=== PATIENT | male | born 1960 | race Caucasian/White ===

== ENCOUNTER 2018-06-29 12:13 | Emergency (ER) | payer OTHER ==
[2018-06-29 12:58] LABS: PLATELET COUNT 243 10^3/uL (150-400)
[2018-06-29] MEDS ORDERED: ASPIRIN 81 MG CHEWABLE TAB PO ONE (13:13)
[2018-06-29] MEDS ORDERED: NITROGLYCERIN 0.4 MG BTL SL PRN (13:14)
--- NOTE | 2018-06-29 13:16 | EDPHY ---
HPI/HX/ROS/PE/MDM Narrative: CHIEF COMPLAINT: Hypertension, shortness of breath, headache, slurred speech HISTORY OF PRESENT ILLNESS: The patient is a 58 y/o male with a history of hypertension complaining of hypertension, shortness of breath, headaches, and slurred speech. For the past 6 months, he has been taking losartan each morning , though he reports his blood pressure has continued to be elevated at 165/100. About 5 days ago, he developed shortness of breath accompanied by a cough with green sputum. 3 days ago, his primary care provider prescribed a a course of azithromycin. He has been taking the azithromycin for the past few days but has missed his dose of losartan for approximately 3 days due to travel and forgetfulness. Further, he notes headaches upon waking up for about a couple weeks, intermittent difficulty speaking which is increasing in intensity and severity for the past few weeks, and shortness of breath for the last few weeks which is worse at night and with activity, causing him gasp for breath or increase his breathing rate. He believes the shortness of breath at night is due to his acid reflux. In addition, he has had pain in the lower left buttocks for which he went to a chiropractor today and had several adjustments including in the neck, and causing an increase in pain along the entire length of his left leg. Today, while grocery shopping, he felt lightheaded and developed a headache. He took his blood pressure and noted it was 185/125, prompting his visit today. He denies chest pain, palpitations, abdominal pain, tingling or numbness in either leg, weakness in his legs, or any other associated symptoms. He denies taking an anticoagulant, smoking, excessive alcohol use, or illicit drug use. His recent travel to [place] did not include prolonged periods of inactivity. He denies history of DVT or PE. No fever, chills, chest pain, palpitations, vomiting, diarrhea, urinary complaints. REVIEW OF SYSTEMS: A comprehensive 10 system review of systems is otherwise negative aside from elements mentioned in the history of present illness and medical decision making PAST MEDICAL HISTORY: Hypertension, Watts's cyst behind right knee SOCIAL HISTORY: at bedside, nonsmoker, lives in [place], employed by [employer] VITAL SIGNS: Reviewed by me. 173/125. GENERAL: Overweight gentleman, resting in no respiratory distress. Visibly anxious. HEENT: Atraumatic. Eyes: No icterus, no injection. Mouth: moist mucous membranes. No erythema or lesions. Neck: supple with no adenopathy. No carotid bruits noted. Supple and nontender. LUNGS: Breath sounds diminished throughout, no wheezes, rhonchi or rales. CARDIAC: Regular rate and rhythm, no rubs, murmurs or gallops. ABDOMEN: Soft, nontender, nondistended, bowel sounds normal. BACK: No CVA tenderness. EXTREMITIES: No trauma. No edema. Range of motion is normal throughout. NEURO: Alert and oriented x3, cranial nerves are intact throughout, normal motor in left leg and throughout, normal sensation in left leg and throughout. Grossly nonfocal. Speech is fluent with an occasional barely perceptible slurring of a few words. SKIN: Warm and dry, no rash. PSYCHIATRIC: Normal mentation, no agitation. ED Course: 12-LEAD EKG: Please see the full report in [facility]. My interpretation: Normal sinus rhythm Study: X-ray of the chest Indication: Shortness of breath Results: X-ray scan of the chest was obtained. The results of the study are: bibasilar atelectasis The study was read by the radiologist, Dr. Leahy. I viewed the images myself on the PACS system. Study: CT of the head Indication: Headaches Results: CT scan of the head was obtained. The results of the study are: negative for acute findings The study was read by the radiologist, Dr. Leahy. I viewed the images myself on the PACS system. The patient presents with shortness of breath, headaches, lightheadedness, difficulty speaking, and hypertension, all increasing in severity over the past few weeks. He also has had neck manipulations performed today. Symptoms became acutely worse this afternoon with a blood pressure of 185/125. Exam indicates diminished breath sound throughout. Neurological exam is normal without any findings. Point of care troponin is elevated at 0.30. 0.4 mg sublingual nitroglycerin and 324 aspirin for treatment. EKG is sinus rhythm. Plan for CBC, basic metabolic panel, lab troponin, D-dimer , lipase, liver function, BNP, chest x-ray, and head CT. CT angiograms initially ordered, however, the patient reports an IV contrast allergy and is not agreeable to pretreatment and then performing the angiogram. 1345: The lab troponin is negative at less than 0.12. His blood pressure is decreasing. Imaging still pending. 1430: The CT is negative for acute findings. The patient continues to decline CTA due to his previous reaction, even with premedication to avoid reaction. I advised MRI. He declined further testing in the emergency department. I have advised follow up with cardiology and with his primary care physician tomorrow. We discussed the initial elevated point of care troponin and a subsequent normal lab troponin. Patient did not have chest pain at any point. He is aware that it if he should develop chest pain, worsening shortness of breath, palpitations, stroke-like symptoms, worsening headache, or other concerns he should return to the emergency department immediately Course discussed with Dr. Philip Hess, on-call for Dr. Yair Valles. Patient to follow up tomorrow with Dr. Valles. Follow up instruction and return precautions given. MDM: Differential diagnoses for the patient's symptom complex was considered including but not limited to hypertensive urgency, stroke, acute coronary syndrome, pulmonary embolism, infectious process. - Data Points Imaging Results: Imaging Impressions Chest X-Ray 06/29/18 12:38 Impression: 1. Bibasilar atelectasis. 2. No interstitial edema or effusion. Head CT 06/29/18 13:13 Impression: 1. Normal brain. No acute intracranial hemorrhage or ischemia. 2. Mild ethmoid, maxillary, and nasal passage sinus disease. Query polyposis. Findings discussed with the emergency department physician, Katie Manrique MD on June 29, 2018 at 2:09 p.m. Imaging: Discussed imaging studies w/ call center support consultant Radiologist, I viewed and interpreted images myself Laboratory Results: Laboratory Results 06/29/18 12:31 06/29/18 12:31 06/29/18 06/29/18 06/29/18 12:44 12:31 12:31 WBC RBC Hgb Hct MCV MCH MCHC RDW Plt Count MPV Neut % (Auto) Lymph % (Auto) [place] % (Auto) Eos % (Auto) Baso % (Auto) Nucleat RBC Rel Count Absolute Neuts (auto) Absolute Lymphs (auto) Absolute Monos (auto) Absolute Eos (auto) Absolute Basos (auto) Absolute Nucleated RBC Immature Gran % Immature Gran # D-Dimer < 0.27 ug/mLFEU ug/mLFEU (0.00-0.50) Sodium Potassium Chloride Carbon Dioxide Anion Gap BUN Creatinine Estimated GFR Glucose Calcium Total Bilirubin 0.8 mg/dL mg/dL (0.1-1.4) Conjugated Bilirubin 0.2 mg/dL mg/dL (0.0-0.5) Unconjugated Bilirubin 0.6 mg/dL mg/dL (0.0-1.1) AST 27 IU/L IU/L (17-59) ALT 42 IU/L IU/L (21-72) Alkaline Phosphatase 61 IU/L IU/L (38-126) POC Troponin I 0.31 ng/mL H ng/mL (0.00-0.08) Troponin I NT-Pro-B Natriuret Pep 83 pg/mL pg/mL (0-125) Total Protein 7.4 g/dL g/dL (6.3-8.2) Albumin 4.4 g/dL g/dL (3.5-5.0) Lipase 99 IU/L IU/L (23-300) 06/29/18 06/29/18 06/29/18 12:31 12:31 12:31 WBC 8.60 10^3/uL 10^3/uL (3.80-9.50) RBC 5.40 10^6/uL 10^6/uL (4.40-6.38) Hgb 15.9 g/dL g/dL (13.7-17.5) Hct 45.3 % % (40.0-51.0) MCV 83.9 fL fL (81.5-99.8) MCH 29.4 pg pg (27.9-34.1) MCHC 35.1 g/dL g/dL (32.4-36.7) RDW 12.1 % % (11.5-15.2) Plt Count 243 10^3/uL 10^3/uL (150-400) MPV 9.3 fL fL (8.7-11.7) Neut % (Auto) 52.0 % % (39.3-74.2) Lymph % (Auto) 35.6 % % (15.0-45.0) Scre[place] % (Auto) 5.9 % % (4.5-13.0) Eos % (Auto) 5.0 % % (0.6-7.6) Baso % (Auto) 0.9 % % (0.3-1.7) Nucleat RBC Rel Count 0.0 % % (0.0-0.2) Absolute Neuts (auto) 4.47 10^3/uL 10^3/uL (1.70-6.50) Absolute Lymphs (auto) 3.06 10^3/uL H 10^3/uL (1.00-3.00) Absolute Monos (auto) 0.51 10^3/uL 10^3/uL (0.30-0.80) Absolute Eos (auto) 0.43 10^3/uL H 10^3/uL (0.03-0.40) Absolute Basos (auto) 0.08 10^3/uL 10^3/uL (0.02-0.10) Absolute Nucleated RBC 0.00 10^3/uL 10^3/uL (0-0.01) Immature Gran % 0.6 % % (0.0-1.1) Immature Gran # 0.05 10^3/uL 10^3/uL (0.00-0.10) D-Dimer Sodium 141 mEq/L mEq/L (135-145) Potassium 4.1 mEq/L mEq/L (3.3-5.0) Chloride 104 mEq/L mEq/L (97-110) Carbon Dioxide 29 mEq/l mEq/l (22-31) Anion Gap 8 mEq/L mEq/L (6-14) BUN 26 mg/dL H mg/dL (7-23) Creatinine 1.2 mg/dL mg/dL (0.7-1.3) Estimated GFR > 60 Glucose 121 mg/dL H mg/dL (70-100) Calcium 9.5 mg/dL mg/dL (8.5-10.4) Total Bilirubin Conjugated Bilirubin Unconjugated Bilirubin AST ALT Alkaline Phosphatase POC Troponin I Troponin I < 0.012 ng/mL ng/mL (0.000-0.034) NT-Pro-B Natriuret Pep Total Protein Albumin Lipase Medications Given: Discontinued Medications Aspirin (Aspirin) 324 mg PO EDNOW ONE Stop: 06/29/18 13:14 Last Admin: 06/29/18 13:27 Dose: 324 mg Nitroglycerin (Nitrostat) 0.4 mg SL Q5M PRN PRN Reason: Chest Pain Last Admin: 06/29/18 13:28 Dose: 0.4 mg Point of Care Test Results: Chemistry 06/29/18 12:44 POC Troponin I 0.31 ng/mL H ng/mL (0.00-0.08) General Time Seen by Provider: 06/29/18 12:57 Initial Vital Signs: Initial Vital Signs Temperature (C) 36.3 C 06/29/18 12:17 Heart Rate 74 06/29/18 12:17 Respiratory Rate 18 06/29/18 12:17 Blood Pressure 173/125 H 06/29/18 12:17 O2 Sat (%) 94 06/29/18 12:17 O2 Delivery Mode Room Air Allergies/Adverse Reactions: iv contrast Allergy (Uncoded 06/29/18 12:17) Home Medications: Medication Instructions Recorded Ondansetron Odt [Zofran Odt] 4 mg PO Q4PRN PRN #4 tab 01/28/16 oxyCODONE/APAP 5/325 [Percocet 1 tab PO Q4-6PRN PRN #10 tab 01/28/16 5/325] Departure - Departure Disposition: Home, Routine, Self-Care Clinical Impression: Shortness of breath Hypertension Qualifiers: Hypertension type: essential hypertension Qualified Code(s): I10 - Essential ( primary) hypertension Headache Qualifiers: Headache type: other headache syndrome Qualified Code(s): G44.89 - Other headache syndrome Condition: Good Instructions: Acute Headache (ED), Hypertension (ED), Shortness of Breath (ED) Additional Instructions: 1. Continue to take your antihypertensives as directed. 2. Continued to take azithromycin as previously prescribed. 3. Return to the emergency department or seek care urgently if you developed chest pain, significant shortness of breath, palpitations, lightheadedness, dizziness, or fainting. 4. Okay to use Tylenol as needed for any headaches. I believe these may be related to your blood pressure. 5. Return to the emergency department or seek care urgently if you have numbness or tingling in her arms or legs, slurred speech, weakness, facial droop , or other symptoms related to a stroke. 6. You been offered further testing in the emergency department to evaluate for stroke, including an MRI. You have declined. Please follow up with primary care physician to obtain additional studies as Dr. Valles may deemed necessary. 7. I discussed your emergency department course with Dr. Paul Hess who will update Dr. Valles. Referrals: Yair Valles MD [[facility] [place] Primary Care Provider] - As per Instructions (Please contact Dr. Valles tomorrow to schedule follow-up visit.) Report Scribed for: Katie Manrique Report Scribed by: Mariela Alan Date of Report: 06/29/18 Time of Report: 13:37 Physician Review and Approval Statement: Portions of this note were transcribed by a medical sonographer. I personally performed a history, physical exam, medical decision making, and confirmed accuracy of information the transcribed note.
[2018-06-29 15:14] VITALS: BP 139/100
--- NOTE | 2018-06-29 15:29 | CPEKG ---
Test Reason : OPEN Blood Pressure : / mmHG Vent. Rate : 064 BPM Atrial Rate : 064 BPM P-R Int : 184 ms QRS Dur : 086 ms QT Int : 433 ms P-R-T Axes : 012 -19 005 degrees QTc Int : 447 ms Sinus rhythm Left ventricular hypertrophy Confirmed by Mg Whitfield ([id number]) on 06/29/2018 3:29:23 PM Referred By: Confirmed By:Mg Whitfield
== END 2018-06-29 15:14 | disposition home or self-care (01) ==
DX: I10 Essential (primary) hypertension (principal); G44.89 Other headache syndrome; R06.02 Shortness of breath
CPT/HCPCS: 84484-PO

== ENCOUNTER → 2018-07-17 | Outpatient (CLI) | payer OTHER | LOC: FIMAGING 09:58 | PROVIDERS: ATTEND Internal Medicine | DX: M54.2 Cervicalgia (principal); I10 Essential (primary) hypertension ==